=== PATIENT | female | born 1965 | race Caucasian/White ===

== ENCOUNTER 2017-02-06 12:07 | Emergency (ER) | payer OTHER ==
[~2017-02-06] VITALS: Ht 152.4 cm; Wt 51.0 kg
[~2017-02-06 12:07] MED LIST: CEFDINIR300 MG PO; FLONASE NASAL50 MCG NS; LEVOTHYROXIN0.025 M1 PO; LOSARTAN POTASS50 MG PO; MOTRIN600 MG PO; PREDNISONE20 MG PO; SOMA350 M1 PO; TYLENOL PO
[2017-02-06 13:23] VITALS: BP 148/96
--- NOTE | 2017-02-06 19:51 | NUR ---
TO ER OF2
--- NOTE | 2017-02-06 19:58 | NUR ---
51Y/F PATIENT BIB FAMILY TO ED WITH C/O INTERMITTENT CONFUSION X 4-5 DAYS. DENIES N/V/D; SKIN IS PINK/WARM/DRY; AAOX4 WITH EVEN AND STEADY GAIT; LUNGS CLEAR BL; HR EVEN AND REGULAR; PT DENIES ANY FEVER, CP, SOB, OR COUGH AT THIS TIME; PATIENT STATES PAIN OF 0/10 AT THIS TIME; VSS; BED DOWN. ER MD MADE AWARE OF PT STATUS.
--- NOTE | 2017-02-06 20:00 | NUR ---
Patient being evaluated by DR. ANDRADE at bedside.
--- NOTE | 2017-02-06 22:05 | NUR ---
Patient discharged with v/s stable. Written and verbal after care instructions given and explained. Patient verbalized understanding. Ambulatory with steady gait. All questions addressed prior to discharge. Advised to follow up with PMD.
[2017-02-06 22:08] VITALS: BP 135/91
== END 2017-02-06 22:05 | disposition home or self-care (01) ==
LOC: MED 12:07
PROC: BW28ZZZ Computerized Tomography (CT Scan) of Head (ICD-10-PCS; principal; 2017-02-06)
DX: F32.9 Major depressive disorder, single episode, unspecified (principal); I10 Essential (primary) hypertension; J44.9 Chronic obstructive pulmonary disease, unspecified; F17.200 Nicotine dependence, unspecified, uncomplicated; F10.21 Alcohol dependence, in remission; R51 Headache
CPT/HCPCS: 36415; 70450; 80053; 80305; 81025; 84439; 84443; 85025; 85610; 99285; G0480; G0482